=== PATIENT | female | born 1995 | race American Indian/Alaskan Native ===

== ENCOUNTER 2016-07-29 22:15 | Emergency (ER) | payer SELFPAY ==
--- NOTE | 2016-07-30 02:24 | Emergency Department Report ---
Chief Complaint: Extremity Problem,Nontraumatic Stated Complaint: SWOLLEN ANKLES Time Seen by Provider: 07/30/16 02:16 - HPI History of Present Illness: Patient reports that she is having ankle pain when while can over the last 2 years. Patient states she is homeless that she is looking for employment so she ends up walking a lot. She says she walked from mouth every day. She reports when it first started that she saw someone and he told her that she was fine. Denies any injury. - ROS Review of Systems: All systems are negative unless stated in HPI above - Exam Vital Signs: Vital Signs 07/29/16 23:03 Temperature 98.2 F Pulse Rate 60 Respiratory 18 Rate Blood Pressure 135/90 O2 Sat by Pulse 100 Oximetry Physical Exam: Gen.: This is an obese fight 1-year-old female well-nourished well-developed in no acute distress. Cardiovascular: S1, S2. Regular rate and rhythm. Lungs: Clear to auscultate bilaterally, no rhonchi wheezes or rales. Extremity: No clubbing, cyanosis or edema. +2 pedal pulses. No neurovascular compromise. MSK: Patient with full range of motion to all extremities. +5/5 strength in extremity. No deformity noted. Psych: Normal mood and behavior MSE screening note: Focused history and physical exam performed. Due to findings the following was ordered:tbd ED Disposition for MSE Condition: Stable
[2016-07-30 02:27] VITALS: BP 132/88
== END 2016-07-30 03:06 | disposition left against medical advice (07) ==
LOC: ED 22:15
DX: M25.579 Pain in unspecified ankle and joints of unspecified foot (principal); Z53.21 Procedure and treatment not carried out due to patient leaving prior to being seen by health care provider

== ENCOUNTER 2016-10-19 04:54 | Emergency (ER) | payer SELFPAY ==
[2016-10-19 05:49] VITALS: BP 152/109
--- NOTE | 2016-10-19 07:59 | Emergency Department Report ---
ED General Adult HPI - General Chief complaint: High BP Stated complaint: HIGH BP Time Seen by Provider: 10/19/16 07:12 Source: patient Mode of arrival: Ambulatory Limitations: No Limitations - History of Present Illness Initial comments: patient comes in to the ER today with complaints of elevated BP. Denies any complaints and states that she was at pharmacy yesterday and checked her BP with high readings. Patient states that she rarely goes to doctor and unsure how long it has been high. -: unknown Severity scale (0 -10): 0 Associated Symptoms: denies other symptoms. denies: chest pain, cough, diaphoresis, fever/chills, headaches, loss of appetite, shortness of breath, syncope, weakness Treatments Prior to Arrival: none - Related Data Previous Rx's Medication Instructions Recorded Last Taken Type Clotrimazole 1% [Lotrimin 1%] 1 applic TP BID #30 tube 10/19/16 Unknown Rx Lisinopril/Hydrochlorothiazide 1 tab PO QDAY #30 tablet 10/19/16 Unknown Rx [Zestoretic 10-12.5 mg] Allergies Allergy/AdvReac Type Severity Reaction Status Date / Time No Known Allergies Allergy Unverified 01/11/14 14:54 ED Review of Systems ROS: Stated complaint: HIGH BP Other details as noted in HPI Constitutional: denies: chills, fever Eyes: denies: eye pain, eye discharge, vision change ENT: other (sore to left side of mouth). 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 denies: depression Hematological/Lymphatic: denies: easy bleeding, easy bruising ED Past Medical Hx - Past Medical History Previous Medical History?: No Hx Asthma: Yes Additional medical history: Obesity. Ovarian Cyst - Surgical History Past Surgical History?: No - Social History Smoking Status: Never Smoker Substance Use Type: None - Medications Home Medications: Home Medications Medication Instructions Recorded Confirmed Last Taken Type Clotrimazole 1% [Lotrimin 1%] 1 applic TP BID #30 tube 10/19/16 Unknown Rx Lisinopril/Hydrochlorothiazide 1 tab PO QDAY #30 tablet 10/19/16 Unknown Rx [Zestoretic 10-12.5 mg] ED Physical Exam - General Limitations: No Limitations General appearance: alert, in no apparent distress - Head Head exam: Present: atraumatic, normocephalic - Eye Eye exam: Present: normal appearance, PERRL, EOMI Pupils: Present: normal accommodation - ENT ENT exam: Present: mucous membranes moist, other (sore noted to left corner of mouth) - Neck Neck exam: Present: normal inspection, full ROM. Absent: lymphadenopathy, thyromegaly - Respiratory Respiratory exam: Present: normal lung sounds bilaterally. Absent: respiratory distress, wheezes, rales, rhonchi - Cardiovascular Cardiovascular Exam: Present: regular rate, normal rhythm, normal heart sounds. Absent: systolic murmur, diastolic murmur, rubs, gallop - GI/Abdominal GI/Abdominal exam: Present: soft, normal bowel sounds, other (obesity). Absent : distended - Rectal Rectal exam: Present: deferred - Extremities Exam Extremities exam: Present: normal inspection. Absent: tenderness, normal capillary refill, pedal edema, joint swelling - Back Exam Back exam: Present: normal inspection - Neurological Exam Neurological exam: Present: alert, oriented X3, CN II-XII intact, normal gait, motor sensory deficit, reflexes normal - Psychiatric Psychiatric exam: Present: normal affect, normal mood. Absent: anxious - Skin Skin exam: Present: warm, dry, intact, normal color. Absent: rash ED Course Vital Signs 10/19/16 05:37 Temperature 98 F Pulse Rate 68 Respiratory 18 Rate Blood Pressure 152/109 Blood Pressure 152/109 [Left] O2 Sat by Pulse 100 Oximetry ED Medical Decision Making - Medical Decision Making patient is non-toxic and hemodynamically stable. She has assymptomatic hypertension and I believe it may be related to her obesity more than anything. I will start her on a low dose medication and treat her angular kelitis. she is to follow up with PCP in 2 weeks for recheck of BP and I have encouraged her to loose weight. Patient is in agreement with treatment plan. Critical care attestation.: If time is entered above; I have spent that time in minutes in the direct care of this critically ill patient, excluding procedure time. ED Disposition Clinical Impression: HTN (hypertension), Angular cheilitis Disposition: DISCHARGED TO HOME OR SELFCARE Is pt being admited?: No Does the pt Need Aspirin: No Condition: Good Instructions: Hypertension (ED) Prescriptions: Clotrimazole 1% [Lotrimin 1%] 1 applic TP BID #30 tube Lisinopril/Hydrochlorothiazide [Zestoretic 10-12.5 mg] 1 tab PO QDAY #30 tablet Referrals: [facility] [Outside] - 3-5 Days PRIMARY CARE [Primary Care Provider] - 11/02/16 (for Blood pressure check) Time of Disposition: 08:11
== END 2016-10-19 08:15 | disposition home or self-care (01) ==
LOC: ED 04:54
DX: I10 Essential (primary) hypertension (principal); K13.0 Diseases of lips; J45.909 Unspecified asthma, uncomplicated; E66.9 Obesity, unspecified; N83.209 Unspecified ovarian cyst, unspecified side
CPT/HCPCS: 99282

== ENCOUNTER 2017-09-14 14:15 | Emergency (ER) | payer SELFPAY ==
[2017-09-14 17:35] VITALS: BP 136/84
[2017-09-14 19:09] LABS: Bacteria,Urine 4+ /HPF (Negative); Bilirubin,Urine NEG (Negative); Blood,Urine SM (Negative); Color,Urine Yellow (Yellow); Mucus,Urine 3+ /HPF; Urobilinogen,Urine < 2.0 mg/dL (<2.0)
[2017-09-14 19:13] LABS: HCG Qualitative,Urine Negative (Negative); WBC,Urine > 182.0 /HPF (0.0-6.0)
== END 2017-09-14 20:00 | disposition left against medical advice (07) ==
LOC: ED 14:15
DX: R10.9 Unspecified abdominal pain (principal); N89.8 Other specified noninflammatory disorders of vagina; Z53.21 Procedure and treatment not carried out due to patient leaving prior to being seen by health care provider
CPT/HCPCS: 81001; 81025

== ENCOUNTER 2017-09-16 20:13 | Emergency (ER) | payer SELFPAY ==
[2017-09-16 21:24] VITALS: BP 126/81
[2017-09-16 22:05] LABS: Bacteria,Urine 1+ /HPF (Negative); Bilirubin,Urine NEG (Negative); Blood,Urine SM (Negative); Color,Urine Yellow (Yellow); Mucus,Urine FEW /HPF
[2017-09-16 22:11] LABS: WBC,Urine > 182.0 /HPF (0.0-6.0)
[2017-09-16 22:20] LABS: HCG Qualitative,Urine Negative (Negative)
== END 2017-09-16 21:45 | disposition left against medical advice (07) ==
LOC: ED 20:13
DX: N89.8 Other specified noninflammatory disorders of vagina (principal); R10.9 Unspecified abdominal pain; Z53.21 Procedure and treatment not carried out due to patient leaving prior to being seen by health care provider
CPT/HCPCS: 81001; 81025; 87591

== ENCOUNTER 2019-08-07 21:25 | Observation (INO) | payer MEDICAID, OTHER ==
[2019-08-07] MEDS ORDERED: ACETAMINOPHEN 325 MG TAB PO ONE (21:46)
--- NOTE | 2019-08-07 21:49 | Emergency Department Report ---
HPI - General Time Seen by Provider: 08/07/19 21:40 - HPI HPI: 24 year-old female presents to the emergency department with the complaint of a 2 day history of moderate vaginal bleeding and pelvic cramping while . With this the patient is . She says that her last menstrual cycle was about May 23. She had a positive home test and it was confirmed by a physician in [place]. However the patient currently lives in [place] now and does not have any local SASH MAKER that she follows with. She has not taken anything for her symptoms prior to presentation. She also has a past medical history of asthma. She denies any fever, dysuria, vaginal discharge. ED Past Medical Hx - Past Medical History Hx Asthma: Yes Additional medical history: Obesity. Ovarian Cyst - Social History Smoking Status: Never Smoker Substance Use Type: None - Medications Home Medications: Home Medications Medication Instructions Recorded Confirmed Last Taken Type Clotrimazole 1% [Lotrimin 1%] 1 applic TP BID #30 tube 10/19/16 Unknown Rx Lisinopril/Hydrochlorothiazide 1 tab PO QDAY #30 tablet 10/19/16 Unknown Rx [Zestoretic 10-12.5 mg] ED Review of Systems ROS: Stated complaint: VAGINAL BLEED/MISCARRAGE Other details as noted in HPI Comment: All other systems reviewed and negative Constitutional: denies: chills, fever Respiratory: denies: shortness of breath Cardiovascular: denies: chest pain Gastrointestinal: denies: nausea, vomiting Genitourinary: other (pelvic cramping, vaginal bleeding) Musculoskeletal: denies: back pain, arthralgia Skin: denies: rash, lesions Neurological: denies: headache, weakness Physical Exam - Physical Exam Physical Exam: GENERAL: The patient is well-developed well-nourished. HEENT: Normocephalic. Atraumatic. Patient has moist mucous membranes. EYES: Extraocular motions are intact. NECK: Supple. Trachea is midline. CHEST/LUNGS: Clear to auscultation. There is no respiratory distress noted. HEART/CARDIOVASCULAR: Regular. There is no tachycardia. There is no murmur. ABDOMEN: Abdomen is soft, nontender. Patient has normal bowel sounds. Obese habitus. SKIN:Skin is warm and dry. . NEURO: The patient is awake, alert, and oriented. The patient is cooperative. The patient has no focal neurologic deficits. Normal speech. MUSCULOSKELETAL: There is no tenderness or deformity. There is no evidence of acute injury. : There is a moderate to large amount of vaginal bleeding seen with clots. ED Course - Reevaluation(s) Reevaluation #1: 08/08/19 01:24 Pelvic examination was done with nurse Morrison at bedside hydraulic barker operator. ED Medical Decision Making - Lab Data Result diagrams: 08/08/19 00:01 08/07/19 21:56 - Radiology Data Radiology results: report reviewed OB ultrasound INDICATION: 11 weeks with vaginal bleeding. COMPARISON: None available. FINDINGS: No intrauterine or ectopic is identified. The uterus measures 14.9 x 6.6 x 7.3 cm. The endometrial stripe measures 12 mm in thickness. No significant abnormality of the uterus is identified. The ovaries are normal in size and appearance with expected color flow. No free fluid is seen. IMPRESSION: No sonographic evidence of an intrauterine or ectopic or other acute abnormality of the pelvis. - Medical Decision Making This patient presents with a 2 day history of pelvic cramping and vaginal bleeding while . Based on her last menstrual cycle the patient should be about 11 weeks . She does appear to have a moderate to large amount of vaginal bleeding with large clots that are being passed and she is soaking some of the sheets. Her initial hemoglobin was 7.9. A second hemoglobin was c hecked about 2 hours later and it had dropped to 7.1. Her beta hCG is about 15,000. A transvaginal and obstetrical ultrasound was done that does not show any sonographic evidence of intrauterine or ectopic . All this appears consistent with a spontaneous miscarriage. Radiology did not really any signs of retained products of conception so the hope is that the bleeding will start to decrease and ceased. However the patient is starting to feel lightheaded and dizzy secondary to her anemia. I have ordered 1 unit of packed red blood cells for transfusion. I spoke with the SASH MAKER on-call, Dr. Galarza, who has accepted the patient to his service as an observational stay. - Differential Diagnosis , miscarriage, fibroids, malignancy Critical Care Time: No Critical care attestation.: If time is entered above; I have spent that time in minutes in the direct care of this critically ill patient, excluding procedure time. ED Disposition Clinical Impression: Spontaneous miscarriage, Vaginal bleeding in , Anemia requiring transfusions Anemia Qualifiers: Anemia type: unspecified type Qualified Code(s): D64.9 - Anemia, unspecified Disposition: 09 OP ADMIT IP TO THIS HOSP Is pt being admited?: Yes Condition: Fair Time of Disposition: 00:54
[2019-08-07 22:13] LABS: Hematocrit 24.1 % (30.3-42.9); Hemoglobin 7.9 gm/dl (10.1-14.3); Mean Corpuscular HGB Conc 33 % (30-34); Mean Corpuscular Volume 66 fl (79-97); Platelet Count 195 K/mm3 (140-440); Red Blood Count 3.66 M/mm3 (3.65-5.03); Red Cell Distribution Width 17.8 % (13.2-15.2)
[2019-08-07] MEDS ORDERED: SODIUM CHLORIDE 0.9% 1000 ML 1,000 ML IV ONE (22:32)
[2019-08-07 22:36] LABS: BUN/Creatinine Ratio 12; Blood Urea Nitrogen 7 mg/dL (7-17); Calcium 8.9 mg/dL (8.4-10.2); Hemolysis Index 0
[2019-08-07 23:01] LABS: Anisocytosis 1+; Basophils % (Manual) 0 % (0.0-1.8); Total Cells Counted 100
[2019-08-07 23:02] LABS: Hypochromasia 1+
[2019-08-08 00:27] LABS: Hematocrit 22.1 % (30.3-42.9); Hemoglobin 7.1 gm/dl (10.1-14.3)
[2019-08-08] MEDS ORDERED: SODIUM CHLORIDE 0.9% 500 ML 500 ML IV ONE (00:53)
--- NOTE | 2019-08-08 01:15 | Ultrasound Report ---
OB ultrasound INDICATION: 11 weeks with vaginal bleeding. COMPARISON: None available. FINDINGS: No intrauterine or ectopic is identified. The uterus measures 14.9 x 6.6 x 7.3 cm. The endometrial stripe measures 12 mm in thickness. No signi ficant abnormality of the uterus is identified. The ovaries are normal in size and appearance with expected color flow. No free fluid is seen. IMPRESSION: No sonographic evidence of an intrauterine or ectopic or other acute abnormality of the pel vis. Signer Name: Farshad Hernandez MD Signed: 08/08/2019 1:11 AM Workstation Name: [id number]
[2019-08-08] MEDS ORDERED: fentaNYL 100 MCG/2 ML INJ IV PRN (04:00)
[2019-08-08] MEDS ORDERED: ONDANSETRON 4 MG/2 ML INJ IV PRN (04:00)
--- NOTE | 2019-08-08 04:04 | History and Physical Report ---
History of Present Illness Date of examination: 08/08/19 Date of admission: 08/08/19 00:54 Chief complaint: Vaginal bleeding at 10wks with severe cramping needing morphine for 04/07. History of present illness: Vaginal bleeding at 10wks with severe cramping needing morphine for 04/07. prior at 10 wks. LMP 05/23/2019. Past History Past Medical History: asthma, hypertension Past Surgical History: section - Obstetrical History Expected Date of Delivery: 02/28/20 Actual Gestation: 10 Week(s) 6 Day(s) Medications and Allergies Allergies Allergy/AdvReac Type Severity Reaction Status Date / Time No Known Allergies Allergy Unverified 01/11/14 14:54 Home Medications Medication Instructions Recorded Confirmed Last Taken Type Clotrimazole 1% [Lotrimin 1%] 1 applic TP BID #30 tube 10/19/16 08/08/19 Unknown Rx Lisinopril/Hydrochlorothiazide 1 tab PO QDAY #30 tablet 10/19/16 08/08/19 Unknown Rx [Zestoretic 10-12.5 mg] Active Meds: Active Medications Sodium Chloride (Nacl 0.9% 1000 Ml) 1,000 mls @ 125 mls/hr IV ONCE ONE Stop: 08/08/19 06:31 Last Admin: 08/07/19 22:49 Dose: 125 mls/hr Documented by: Review of Systems All systems: negative - Vital Signs Vital signs: Vital Signs Pulse Resp BP Pulse Ox 101 H 13 125/52 99 08/07/19 21:42 08/07/19 21:42 08/07/19 21:42 08/07/19 21:42 Temp Pulse Resp BP Pulse Ox 98.4 F 78 20 90/51 98 08/08/19 02:57 08/08/19 02:57 08/08/19 02:57 08/08/19 02:57 08/08/19 02:57 - Physical Exam Lungs: Positive: Normal air movement Vulva: both: normal Cervix: Positive: other (Os was open and had an ovular 5,3cm mass sitting in the canal, no active bleeding was observed.) Results Result Diagrams: 08/08/19 00:01 08/07/19 21:56 Abnormal lab results 08/07/19 08/07/19 08/07/19 Range/Units 21:56 21:56 21:56 Hgb 7.9 L (10.1-14.3) gm/dl Hct 24.1 L (30.3-42.9) % MCV 66 L (79-97) fl MCH 22 L (28-32) pg RDW 17.8 H (13.2-15.2) % Seg Neuts % (Manual) 33.0 L (40.0-70.0) % Lymphocytes % (Manual) 56.0 H (13.4-35.0) % Monocytes % (Manual) 9.0 H (0.0-7.3) % Carbon Dioxide 21 L (22-30) mmol/L Creatinine 0.6 L (0.7-1.2) mg/dL Glucose 126 H (65-100) mg/dL HCG, Quant 08634 H (0-4) mIU/mL 08/08/19 Range/Units 00:01 Hgb 7.1 L (10.1-14.3) gm/dl Hct 22.1 L (30.3-42.9) % MCV (79-97) fl MCH (28-32) pg RDW (13.2-15.2) % Seg Neuts % (Manual) (40.0-70.0) % Lymphocytes % (Manual) (13.4-35.0) % Monocytes % (Manual) (0.0-7.3) % Carbon Dioxide (22-30) mmol/L Creatinine (0.7-1.2) mg/dL Glucose (65-100) mg/dL HCG, Quant (0-4) mIU/mL All other labs normal. Assessment and Plan - Patient Problems (1) Incomplete Current Visit: Yes Status: Acute Plan to address problem: Patient consented for a suction evacuation of POC under sedation. She also needs to blood transfusion for her low HB.
[2019-08-08] MEDS ORDERED: LIDOCAINE MPF (2%) 20 MG/1 ML VIAL 5 ML ONE (04:10)
[2019-08-08] MEDS ORDERED: propofoL 200 MG/20 ML VIAL IV ONE (04:10)
[2019-08-08] MEDS ORDERED: fentaNYL 100 MCG/2 ML INJ ONE (05:01)
[2019-08-08] MEDS ORDERED: LACTATED RINGERS 1,000 ML ONE (05:08)
[2019-08-08] MEDS ORDERED: ONDANSETRON 4 MG/2 ML INJ ONE (05:13)
[2019-08-08] MEDS ORDERED: SODIUM CHLORIDE 0.9% IRR 1,000 ML BOTTLE IR ONE (05:21)
[2019-08-08] MEDS ORDERED: ceFAZolin 1 GM VIAL ONE ×2 (05:22)
[2019-08-08] MEDS ORDERED: IBUPROFEN 600 MG TAB PO PRN (05:43)
[2019-08-08] MEDS ORDERED: HYDROcodone/ACETAMINOPHEN 5-325 MG TAB PO PRN (05:43)
[2019-08-08] MEDS ORDERED: ACETAMINOPHEN 325 MG TAB PO PRN (05:43)
[2019-08-08] MEDS ORDERED: SODIUM CHLORIDE 0.9% 500 ML 500 ML ONE (05:45)
--- NOTE | 2019-08-08 05:52 | Anesthesia Day of Surgery ---
Anesthesia Day of Surgery - Day of Surgery Patient Examined: Yes Patient H&P Reviewed: Yes Patient is NPO: Yes (3PM yesterday)
--- NOTE | 2019-08-08 05:53 | Post Anesthesia Evaluation ---
- Post Anesthesia Evaluation Patient Participated: Yes Airway Patent: Yes Stable Respiratory Function: Yes Nausea/Vomiting: No Temp > 96.8F: Yes Pain Manageable: Yes Adequeate Hydration: Yes Anesthesia Complications: No Block Receding Appropriately: Not Applicable Patient on Ventilator: No
--- NOTE | 2019-08-08 05:53 | Anesthesia Consultation ---
Anesthesia Consult and Med Hx Date of service: 08/08/19 - Airway Anesthetic Teeth Evaluation: Good ROM Head & Neck: Adequate Mental/Hyoid Distance: Adequate Mallampati Class: Class III Intubation Access Assessment: Probably Good - Pre-Operative Health Status ASA Pre-Surgery Classification: ASA3, Emergency Proposed Anesthetic Plan: General - Pulmonary Hx Asthma: Yes COPD: No Hx Pneumonia: No - Cardiovascular System Hx Hypertension: Yes - Endocrine Hx End Stage Renal Disease: No - Hematic Hx Anemia: Yes
--- NOTE | 2019-08-08 06:10 | Operative Report ---
Operative Report Operative Report: Date of surgery: August 08, 2019 Pre Op Diagnosis: Incomplete Post Op Diagnosis: Same. Procedures: Suction evacuation of the uterus Surgeon: Sofie Phan MD Anesthesiologist: MD Sheila Anesthesia: IV sedation EBL: 50cc or less. Complications: None Findings: Vulva and vagina were normal. The cervical os was dilated to 3 cm. There was a mass of products of conception within the cervical canal. The uterus was boggy and about 10 weeks size and sounded to 10 cm. Both adnexa were unremarkable. Procedure in details: The patient was taken to the operating room, she was placed in the straight supine position and given general anesthesia. Patient was then put in the lithotomy position and prepped in the vulva vagina and abdomen. The drapes were placed. A timeout was done. With the go ahead from the hydro technician, a bimanual examination of the pelvis was done. A red rubber catheter was used to empty the bladder. The sponge forcep was used to stabilize the anterior lip of the cervix. In the first instance the products of conception within the cervical canal was removed using the ovum. A 12 mm Vacurette was used to suction evacuate the uterine cavity. The endometrial lining was not sharply curetted. The products of conception retrieved with a package to the pathology lab for tissue examination. There was no active bleeding at the end of suctioning. The vagina and instruments were withdrawn. All sponges and instruments were accounted for. There were no complications. The estimated blood loss was less than 50 mL. The patient tolerated the procedure well and was transferred to the recovery room in very good condition.
[2019-08-08] MEDS ORDERED: guaiFENesin 100 MG/5 ML ORAL LIQD PO PRN (11:22)
--- NOTE | 2019-08-08 11:27 | Progress Note ---
Assessment and Plan - Patient Problems (1) S/P dilatation and curettage Current Visit: Yes Status: Acute Plan to address problem: Day of procedure with lightheadedness Continue routine postop orders If H&H stable, will discharge to home today to continue iron therapy and follow up with [facility] [employer] EQUIP[employer]INE MECHANIC as needed or in 4 weeks for exam. (2) Spontaneous miscarriage Current Visit: Yes Status: Acute Plan to address problem: 10 weeks gestation (3) Anemia requiring transfusions Current Visit: Yes Status: Acute Plan to address problem: s/p transfusion of 1 unit PRBCs Repeat H&H at 11 am pending Subjective - Subjective Date of service: 08/08/19 Principal diagnosis: s/p D&C and Blood Transfusion, Vaginal Bleeding at 10 weeks, Morbid Obesity Interval history: see General (Voice Dictation), H&P and Operative Report Patient reports: appetite normal, voiding normally, pain well controlled, ambulating normally, other (reports lightheadedness), no dizzy ambulation [place]: Objective - Vital Signs Latest vital signs: Vital Signs Temp Pulse Resp BP BP Pulse Ox 08/08/19 07:55 98.4 F 94 H 16 118/67 97 08/08/19 07:05 98.6 F 99 H 20 110/54 110/54 95 08/08/19 07:00 96 H 19 114/74 100 08/08/19 06:45 97.9 F 97 H 20 111/59 100 08/08/19 06:30 99 H 13 104/55 99 08/08/19 06:28 98.5 F 100 H 13 107/65 100 08/08/19 06:15 102 H 18 102/61 99 08/08/19 06:08 98.6 F 101 H 20 110/63 99 08/08/19 06:00 100 H 20 99/57 99 08/08/19 05:55 104 H 20 106/61 98 08/08/19 05:50 107 H 20 107/52 98 08/08/19 05:45 98.2 F 110 H 20 111/88 96 08/08/19 02:57 98.4 F 78 20 90/51 98 08/08/19 02:23 98.2 F 92 H 26 H 100 08/08/19 01:16 111/59 100 08/08/19 01:00 111/59 98 08/08/19 00:46 117/64 100 08/08/19 00:30 117/64 100 08/08/19 00:16 121/70 100 08/08/19 00:00 121/70 100 08/07/19 23:46 100/53 100 08/07/19 23:31 100/53 100 08/07/19 23:19 121/70 100 08/07/19 23:16 121/70 96 08/07/19 23:00 121/70 08/07/19 22:46 109/48 100 08/07/19 22:30 125/52 100 08/07/19 22:16 92 H 26 H 125/71 97 08/07/19 22:00 98 H 14 125/71 100 08/07/19 21:46 98 H 19 125/52 100 08/07/19 21:44 98.2 F 98 H 12 125/52 100 08/07/19 21:42 101 H 13 125/52 99 Intake and Output 08/07/19 08/08/19 08/08/19 23:59 07:59 15:59 Intake Total 10 650 Balance 10 650 Intake: IV 10 400 Left Antecubital 10 Blood Product 250 Leukoreduced Red Blood 0 Cells Unit [id number] Other: Weight 145.15 kg - Exam Cardiovascular: Present: Regular rate Lungs: Present: Clear to auscultation Abdomen: Present: normal appearance, soft Vulva: both: normal Uterus: Present: normal, firm, fundal height below umbilicus Extremities: Present: normal Comments: scant lochia - Labs Labs: Abnormal lab results 08/07/19 08/07/19 08/07/19 Range/Units 21:56 21:56 21:56 Hgb 7.9 L (10.1-14.3) gm/dl Hct 24.1 L (30.3-42.9) % MCV 66 L (79-97) fl MCH 22 L (28-32) pg RDW 17.8 H (13.2-15.2) % Seg Neuts % (Manual) 33.0 L (40.0-70.0) % Lymphocytes % (Manual) 56.0 H (13.4-35.0) % Monocytes % (Manual) 9.0 H (0.0-7.3) % Carbon Dioxide 21 L (22-30) mmol/L Creatinine 0.6 L (0.7-1.2) mg/dL Glucose 126 H (65-100) mg/dL HCG, Quant [id number] H (0-4) mIU/mL Crossmatch 08/08/19 08/08/19 Range/Units 00:01 03:30 Hgb 7.1 L (10.1-14.3) gm/dl Hct 22.1 L (30.3-42.9) % MCV (79-97) fl MCH (28-32) pg RDW (13.2-15.2) % Seg Neuts % (Manual) (40.0-70.0) % Lymphocytes % (Manual) (13.4-35.0) % Monocytes % (Manual) (0.0-7.3) % Carbon Dioxide (22-30) mmol/L Creatinine (0.7-1.2) mg/dL Glucose (65-100) mg/dL HCG, Quant (0-4) mIU/mL Crossmatch See Detail
[2019-08-08 13:34] LABS: Hematocrit 20.3 % (30.3-42.9); Hemoglobin 6.5 gm/dl (10.1-14.3)
[2019-08-08] MEDS ORDERED: SODIUM CHLORIDE 0.9% 500 ML 500 ML IV NR (13:56)
[2019-08-08 23:32] LABS: Hematocrit 22.7 % (30.3-42.9); Hemoglobin 7.6 gm/dl (10.1-14.3)
[2019-08-09 13:20] VITALS: BP 126/74
--- NOTE | 2019-08-09 13:44 | Progress Note ---
Assessment and Plan - Patient Problems (1) Anemia Current Visit: Yes Status: Acute Qualifiers: Anemia type: unspecified type Qualified Code(s): D64.9 - Anemia, unspecified (2) S/P dilatation and curettage Current Visit: Yes Status: Acute Plan to address problem: send home with iron and colace. RTO 4 weeks Subjective - Subjective Date of service: 08/09/19 Principal diagnosis: s/p D&C and Blood Transfusion, Vaginal Bleeding at 10 weeks, Morbid Obesity Interval history: Pt feeling better today after 3 units PRBCs yesterday. PT no longer has any anemic sxs and her VB is minimal. Objective - Vital Signs Vital Signs: Vital Signs - 12hr 08/09/19 08/09/19 08/09/19 04:27 08:25 12:33 Temperature 97.9 F 98.6 F 97.9 F Pulse Rate 79 95 H 89 Respiratory 20 18 18 Rate Blood Pressure 114/53 129/79 126/74 O2 Sat by Pulse 100 97 98 Oximetry - Exam Abdomen: Present: normal appearance. Absent: tenderness - Labs Labs: Abnormal Labs 08/07/19 08/07/19 08/07/19 21:56 21:56 21:56 Hgb 7.9 L Hct 24.1 L MCV 66 L MCH 22 L RDW 17.8 H Seg Neuts % (Manual) 33.0 L Lymphocytes % (Manual) 56.0 H Monocytes % (Manual) 9.0 H Carbon Dioxide 21 L Creatinine 0.6 L Glucose 126 H HCG, Quant [id number] H Crossmatch 08/08/19 08/08/19 08/08/19 00:01 03:30 12:48 Hgb 7.1 L 6.5 L Hct 22.1 L 20.3 L MCV MCH RDW Seg Neuts % (Manual) Lymphocytes % (Manual) Monocytes % (Manual) Carbon Dioxide Creatinine Glucose HCG, Quant Crossmatch See Detail 08/08/19 23:18 Hgb 7.6 L Hct 22.7 L MCV MCH RDW Seg Neuts % (Manual) Lymphocytes % (Manual) Monocytes % (Manual) Carbon Dioxide Creatinine Glucose HCG, Quant Crossmatch Laboratory Results - last 24 hr 08/08/19 08/08/19 08/08/19 03:30 12:48 23:18 Hgb 6.5 L 7.6 L Hct 20.3 L 22.7 L Blood Type O POSITIVE Antibody Screen Negative Crossmatch See Detail
--- NOTE | 2019-08-09 13:46 | Discharge Summary ---
Providers - Providers Date of Admission: 08/08/19 00:54 Date of discharge: 08/09/19 Attending physician: YURY MONTAGUE MD Primary care physician: TOOLMAN Hospitalization Hospital course: PT admitted for incomplete AB. D&C done. PT needed 3 units PRBCs afterwards for symptomatic blood loss anemia. Sxs resolved and pt sent home with iron and colace. Condition at discharge: Stable Disposition: - TO HOME OR SELFCARE - Discharge Diagnoses (1) Anemia Status: Acute Qualifiers: Anemia type: unspecified type Qualified Code(s): D64.9 - Anemia, unspecified (2) S/P dilatation and curettage Status: Acute Plan - Discharge Medications Prescriptions: Docusate Sodium [Colace] 100 mg PO BID PRN #60 capsule PRN Reason: Constipation Ferrous Sulfate [Iron 325 MG] 325 mg PO BID #60 tablet - Provider Discharge Summary Additional instructions: [] Smoking cessation referral if applicable(refer to patient education folder for contact #) [] Refer to [facility] Booklet Call your doctor immediately for: * Fever > 100.5 * Heavy vaginal bleeding ( >1 pad per hour) * Severe persistent headache * Shortness of breath * Reddened, hot, painful area to leg or breast * Drainage or odor from incision. * Keep incision clean and dry at all times and follow doctor's instructions regarding bathing/showering - Follow up plan Follow up: YURY MONTAGUE MD [Staff Physician] - 09/05/19
== END 2019-08-09 17:31 | disposition home or self-care (01) ==
LOC: ED 21:25 → OB 08-08 00:54
PROVIDERS: ADMIT Obstetrics & Gynecology; ATTEND Obstetrics & Gynecology
DX: O03.4 Incomplete spontaneous abortion without complication (principal); D64.9 Anemia, unspecified; J45.909 Unspecified asthma, uncomplicated; I10 Essential (primary) hypertension; E66.9 Obesity, unspecified; Z98.891 History of uterine scar from previous surgery
CPT/HCPCS: 36415; 36430; 59812; 76801; 76817; 80048; 84702; 85007; 85014; 85018; 85025; 86850; 86900; 86901; 86920; 88305; 99285; G0378; J0690; J2405; J2704; J3010; J7030; J7040; J7120; P9016